=== PATIENT | female | born 1960 | race Caucasian/White ===

== ENCOUNTER 2017-05-11 12:48 | Emergency (ER) | payer OTHER ==
[2017-05-11] MEDS ORDERED: Meclizine TAB* 12.5 MG PO ONE (13:39)
[2017-05-11] MEDS ORDERED: Ondansetron INJ* 2 MG/ML VIAL IV ONE (13:39)
[2017-05-11 14:02] LABS: Hematocrit 36 % (35-47); Mean Corpuscular HGB Conc 33 g/dl (31-36); Mean Corpuscular Hemoglobin 26 pg (27-31); Mean Corpuscular Volume 77 fL (80-97); Mean Platelet Volume 10 um3 (7.4-10.4); Red Blood Count 4.71 10^6/ul (4.0-5.4); Red Cell Distribution Width 15 % (10.5-15); White Blood Count 9.4 10^3/ul (3.5-10.8)
[2017-05-11 14:25] LABS: Troponin I 0.01 ng/mL (<0.04)
[2017-05-11 14:27] LABS: Albumin 4.2 g/dL (3.2-5.2); BUN/Creatinine Ratio 13.6 (8-20); Calcium 9.7 mg/dL (8.6-10.3); EGFR African American 94.1 (>60); EGFR Non-African American 73.1 (>60); Globulin 3.3 g/dL (2-4); Potassium 3.9 mmol/L (3.5-5.0); Total Bilirubin 0.3 mg/dL (0.2-1.0); Total Protein 7.5 g/dL (6.4-8.9)
--- NOTE | 2017-05-11 14:50 | RAD ---
HISTORY: Dizziness COMPARISONS: November 14, 2009 TECHNIQUE: Multiple contiguous axial CT scans were obtained of the head without intravenous contrast. FINDINGS: HEMORRHAGE/INFARCT: There is no hemorrhage or acute infarct. MASSES/SHIFT: There is no mass or shift. EXTRA-AXIAL SPACES: There are no extra-axial fluid collections. SULCI AND VENTRICLES: The sulci and ventricles are normal in size and position for the patient's stated age. CEREBRUM: There are no focal parenchymal abnormalities. BRAINSTEM: There are no focal parenchymal abnormalities. CEREBELLUM: There are no focal parenchymal abnormalities. VESSELS: The vessels are grossly normal. PARANASAL SINUSES: The paranasal sinuses are clear. ORBITS: The orbits are unremarkable. BONES AND SOFT TISSUE: No bone or soft tissue abnormalities are noted. OTHER: None IMPRESSION: NO ACUTE INTRACRANIAL PATHOLOGY.
[2017-05-11 14:57] LABS: Urine Bacteria Absent (Absent); Urine Bilirubin Negative (Negative); Urine Glucose Negative (Negative); Urine Nitrite Negative (Negative)
[2017-05-11 15:16] LABS: TSH (Thyroid Stimulating Horm) 0.53 mcIU/mL (0.34-5.60)
[2017-05-11] MEDS ORDERED: NS 0.9% 1000 ML* 1,000 ML IV ONE (16:09)
[2017-05-11 18:44] VITALS: BP 140/75
--- NOTE | 2017-05-11 21:07 | ED ---
Carlos Brooks Nilda, scribed for Hang Chua MD on 05/11/17 at 1348 . Dizziness - HPI Summary HPI Summary: This patient is a 56 year old F presenting to [facility] accompanied by with a chief complaint of dizziness exacerbated since 1000 (3.5 hours ago). The patient rates the pain 0/10 in severity. Symptoms aggravated by movement. Symptoms alleviated by nothing. Patient reports shakiness inside, unsteadiness , constant nausea, and intermittent dizziness every day for the past two months. Patient denies feelings of syncope and tremors. She is awaiting a neurology appointment. - History Of Current Complaint Chief Complaint: EDDizziness Stated Complaint: DIZZY Time Seen by Provider: 05/11/17 13:28 Hx Obtained From: Patient Onset/Duration: Still Present, Gradually Timing: Constant Severity Currently: Mild Character: Dizzy Aggravating Factor(s): Other - Movement Alleviating Factor(s): Nothing Associated Signs And Symptoms: Positive: Nausea, Unsteady Gait, Other: - "shakiness inside"; denies tremors and syncope - Allergies/Home Medications Allergies/Adverse Reactions: Allergies Allergy/AdvReac Type Severity Reaction Status Date / Time Clarithromycin [From Biaxin] Allergy Intermediate facial Verified 05/11/17 13:02 swelling morphine Allergy Headache Uncoded 05/11/17 13:02 PMH/Surg Hx/FS Hx/Imm Hx Respiratory History: Reports: Hx Asthma History: Reports: Hx Kidney Stones - Cancer History Hx Chemotherapy: No Hx Radiation Therapy: No - Surgical History Surgery Procedure, Year, and Place: Laporoscopy Infectious Disease History: Yes Infectious Disease History: Denies: Traveled Outside the [place] in Last 30 Days - Family History Known Family History: Positive: Hypertension, Diabetes - Social History Alcohol Use: Rare Substance Use Type: Reports: None Smoking Status (MU): Former Smoker Type: Cigarettes Amount Used/How Often: 1/2 PPD- 1PPD Length of Time of Smoking/Using Tobacco: 34 years Have You Smoked in the Last Year: Yes Review of Systems Positive: Nausea Neurological: Other - "shakiness inside," dizziness, unsteadiness; negative: tremors Negative: Syncope All Other Systems Reviewed And Are Negative: Yes Physical Exam Triage Information Reviewed: Yes Vital Signs On Initial Exam: Initial Vitals BP 133/83 05/11/17 12:55 Vital Signs Reviewed: Yes Appearance: Positive: Well-Appearing, No Pain Distress, Obese Skin: Positive: Warm, Skin Color Reflects Adequate Perfusion, Dry Head/Face: Positive: Normal Head/Face Inspection Eyes: Positive: Normal, Other: - No nystagmus ENT: Positive: Normal ENT inspection Neck: Positive: Supple, Nontender Respiratory/Lung Sounds: Positive: Clear to Auscultation, Breath Sounds Present Cardiovascular: Positive: RRR Abdomen Description: Positive: Nontender, Soft Bowel Sounds: Positive: Present Musculoskeletal: Positive: Normal Neurological: Positive: Normal Psychiatric: Positive: Normal, Affect/Mood Appropriate - [place] Coma Scale Coma Scale Total: 15 Diagnostics - Vital Signs Vital Signs Temp Pulse Resp BP Pulse Ox 05/11/17 13:10 116 147/81 05/11/17 13:00 103 19 98 05/11/17 12:58 97.6 F 100 19 133/83 98 05/11/17 12:56 107 98 05/11/17 12:55 133/83 - Laboratory Lab Results: Lab Results 05/11/17 05/11/17 05/11/17 Range/Units 13:50 13:50 13:50 WBC 9.4 (3.5-10.8) 10^3/ul RBC 4.71 (4.0-5.4) 10^6/ul Hgb 12.0 (12.0-16.0) g/dl Hct 36 (35-47) % MCV 77 L (80-97) fL MCH 26 L (27-31) pg MCHC 33 (31-36) g/dl RDW 15 (10.5-15) % Plt Count 292 (150-450) 10^3/ul MPV 10 (7.4-10.4) um3 Neut % (Auto) 58.8 (38-83) % Lymph % (Auto) 30.6 (25-47) % [place] % (Auto) 6.8 (1-9) % Eos % (Auto) 2.9 (0-6) % Baso % (Auto) 0.9 (0-2) % Absolute Neuts (auto) 5.5 (1.5-7.7) 10^3/ul Absolute Lymphs (auto) 2.9 (1.0-4.8) 10^3/ul Absolute Monos (auto) 0.6 (0-0.8) 10^3/ul Absolute Eos (auto) 0.3 (0-0.6) 10^3/ul Absolute Basos (auto) 0.1 (0-0.2) 10^3/ul Absolute Nucleated RBC 0 10^3/ul Nucleated RBC % 0 Sodium 136 (133-145) mmol/L Potassium 3.9 (3.5-5.0) mmol/L Chloride 102 (101-111) mmol/L Carbon Dioxide 26 (22-32) mmol/L Anion Gap 8 (2-11) mmol/L BUN 11 (6-24) mg/dL Creatinine 0.81 (0.51-0.95) mg/dL Est GFR ( Amer) 94.1 (>60) Est GFR (Non-Af Amer) 73.1 (>60) BUN/Creatinine Ratio 13.6 (8-20) Glucose 115 H (70-100) mg/dL Lactic Acid 2.0 (0.5-2.0) mmol/L Calcium 9.7 (8.6-10.3) mg/dL Total Bilirubin 0.30 (0.2-1.0) mg/dL AST 36 (13-39) U/L ALT 52 (7-52) U/L Alkaline Phosphatase 64 (34-104) U/L Troponin I 0.01 (<0.04) ng/mL Total Protein 7.5 (6.4-8.9) g/dL Albumin 4.2 (3.2-5.2) g/dL Globulin 3.3 (2-4) g/dL Albumin/Globulin Ratio 1.3 (1-3) TSH 0.53 (0.34-5.60) mcIU/mL Urine Color Urine Appearance Urine pH (5-9) Ur Specific [place] (1.010-1.030) Urine Protein (Negative) Urine Ketones (Negative) Urine Blood (Negative) Urine Nitrate (Negative) Urine Bilirubin (Negative) Urine Urobilinogen (Negative) Ur Leukocyte Esterase (Negative) Urine WBC (Auto) (Absent) Urine RBC (Auto) (Absent) Ur Squamous Epith Cells (Absent) Urine Bacteria (Absent) Urine Glucose (Negative) 05/11/17 Range/Units 14:30 WBC (3.5-10.8) 10^3/ul RBC (4.0-5.4) 10^6/ul Hgb (12.0-16.0) g/dl Hct (35-47) % MCV (80-97) fL MCH (27-31) pg MCHC (31-36) g/dl RDW (10.5-15) % Plt Count (150-450) 10^3/ul MPV (7.4-10.4) um3 Neut % (Auto) (38-83) % Lymph % (Auto) (25-47) % [place] % (Auto) (1-9) % Eos % (Auto) (0-6) % Baso % (Auto) (0-2) % Absolute Neuts (auto) (1.5-7.7) 10^3/ul Absolute Lymphs (auto) (1.0-4.8) 10^3/ul Absolute Monos (auto) (0-0.8) 10^3/ul Absolute Eos (auto) (0-0.6) 10^3/ul Absolute Basos (auto) (0-0.2) 10^3/ul Absolute Nucleated RBC 10^3/ul Nucleated RBC % Sodium (133-145) mmol/L Potassium (3.5-5.0) mmol/L Chloride (101-111) mmol/L Carbon Dioxide (22-32) mmol/L Anion Gap (2-11) mmol/L BUN (6-24) mg/dL Creatinine (0.51-0.95) mg/dL Est GFR ( Amer) (>60) Est GFR (Non-Af Amer) (>60) BUN/Creatinine Ratio (8-20) Glucose (70-100) mg/dL Lactic Acid (0.5-2.0) mmol/L Calcium (8.6-10.3) mg/dL Total Bilirubin (0.2-1.0) mg/dL AST (13-39) U/L ALT (7-52) U/L Alkaline Phosphatase (34-104) U/L Troponin I (<0.04) ng/mL Total Protein (6.4-8.9) g/dL Albumin (3.2-5.2) g/dL Globulin (2-4) g/dL Albumin/Globulin Ratio (1-3) TSH (0.34-5.60) mcIU/mL Urine Color Yellow Urine Appearance Cloudy Urine pH 5.0 (5-9) Ur Specific [place] 1.014 (1.010-1.030) Urine Protein Negative (Negative) Urine Ketones Negative (Negative) Urine Blood Negative (Negative) Urine Nitrate Negative (Negative) Urine Bilirubin Negative (Negative) Urine Urobilinogen Negative (Negative) Ur Leukocyte Esterase 2+ H (Negative) Urine WBC (Auto) 3+(>20/hpf) H (Absent) Urine RBC (Auto) 1+(3-5/hpf) H (Absent) Ur Squamous Epith Cells Present H (Absent) Urine Bacteria Absent (Absent) Urine Glucose Negative (Negative) Result Diagrams: 05/11/17 13:50 05/11/17 13:50 Lab Statement: Any lab studies that have been ordered have been reviewed, and results considered in the medical decision making process. - CT Brain CT Interpretation Completed By: Radiologist - Brain CT reveals no acute intracranial pathology. ED physician has reviewed this radiology report and agrees. - EKG 1509 Cardiac Rate: Tachycardia - Borderline Tachycardia, 99 bpm EKG Rhythm: Sinus Rhythm EKG Interpretation: non-specific changes Re-Evaluation - Re-Evaluation First Eval Re-Evaluation Time: 16:07 Comment: Patient reports that she feels slightly better. Second Eval Re-Evaluation Time: 18:43 Comment: ED Physician will D/C patient with prescription and ask to follow up with PCP in a week. Patient understands and agrees with plan. Dizzy Course/Dx - Course Course Of Treatment: Ms. Maier presented with a history of daily episode of vertigo for which she has been referd to Dr. Mensah. Today she also feels ' shaky inside'. She was borderline tachycardic while here which did not respond to fluids. Her vertigo did respond to medications and her shakiness responded to the fluid. She felt improved and her W/U was negative aside from an equivocal U/A which I will cover. - Diagnoses Provider Diagnoses: UTI (urinary tract infection), Peripheral vertigo Discharge - Discharge Plan Condition: Stable Disposition: HOME Prescriptions: Ciprofloxacin TAB* [Cipro Tab*] 500 mg PO BID #10 tab Meclizine TAB* [Antivert 12.5 TAB*] 25 mg PO TID PRN #20 tab PRN Reason: Dizziness Patient Education Materials: Urinary Tract Infection in Women (ED) Referrals: Bhavik Hammer MD [Primary Care Provider] - 1 Week Additional Instructions: RETURN TO THE EMERGENCY DEPARTMENT FOR CHANGING OR WORSENING SYMPTOMS. The documentation as recorded by the Carlos devine Nilda accurately reflects the service I personally performed and the decisions made by me, Hang Chua MD.
== END 2017-05-11 19:03 | disposition home or self-care (01) ==
LOC: ED 12:48
DX: N39.0 Urinary tract infection, site not specified (principal)
CPT/HCPCS: 36415; 70450; 80053; 81003; 81015; 83605; 84443; 84484; 85025; 87086; 93005; 96360; 96374; 99284; A9270-GY; J2405

== ENCOUNTER 2019-06-12 02:25 | Emergency (ER) | payer OTHER ==
--- OUTSIDE RECORDS SUMMARY | 2019-06-12 02:42 | XMS REPORT | Continuity of Care Document ---
:1960 External Reference #:[id number] Author Name Maite Suggs O.D. Address [address] [place] [address] Care Team Providers Name Role Phone Bhavik Hammer M.D. - Family Medicine Care Team Information Sales Representative Education Courses Problems Active Problems Provider Date H/O: depression Onset: Anxiety Onset: Familial hypercholesterolemia Onset: Hiatal hernia Onset: Nuclear senile cataract Maite Suggs O.D. Onset: 05/30/2017 Myopia Maite Suggs O.D. Onset: 05/30/2017 Regular astigmatism Maite Suggs O.D. Onset: 05/30/2017 Presbyopia Maite Suggs O.D. Onset: 05/30/2017 Type 2 diabetes mellitus Onset: Social History Type Date Description Comments Sex Unknown ETOH Use Consumed 1-2 beers per week Recreational Drug Use Denies Drug Use Tobacco Use Start: Unknown End: Patient is a former quit 4 years ago Unknown smoker Smoking Status Reviewed: 05/24/19 Patient is a former quit 4 years ago smoker Allergies, Adverse Reactions, Alerts Active Allergies Reaction Severity Comments Date Biaxin 05/29/2017 Morphine 05/29/2017 Medications Active Medications SIG Qnty Indications Ordering Provider Date Saline Eye Drop prn Maite Suggs 05/29/2017 O.DSarah Sertraline HCL take 2 tablets by Unknown 100mg mouth once daily Tablets Pantoprazole Sodium take 1 tablet by Unknown 40mg mouth once daily Tablets Bupropion HCL ER (XL) Unknown 300mg Tablets ER 24HR Calcium 600 Unknown 600mg Tablets Multi Vitamin Daily Unknown Tablets Biotin Unknown 1mg Capsules Metformin HCL Unknown 500mg Tablets Rosuvastatin Calcium Unknown 20mg Tablets Amitriptyline HCL Unknown 25mg Tablets Immunizations Description No Information Available Vital Signs Description No Information Available Results Description No Information Available Procedures Description No Information Available Medical Devices Description No Information Available Encounters Description No Information Available Assessments Date Code Description Provider 05/24/2019 H25.13 Age-related nuclear cataract, bilateral Maite Suggs O.D. 05/24/2019 E11.9 Type 2 diabetes mellitus without Maite Suggs O.D. complications 05/24/2019 H52.13 Myopia, bilateral Maite Suggs O.D. 05/24/2019 H52.4 Presbyopia Maite Suggs O.D. 05/24/2019 H52.223 Regular astigmatism, bilateral Maite Suggs O.D. Plan of Treatment 05/24/2019 - Maite Suggs O.D.H25.13 Age-related nuclear cataract, bilateralComments:You have nuclear sclerosis, which is hardening of your natural lens. This is normal as a person ages.Follow up:1 YEAR You can expect to have your eyes dilated at your next visit. If Dr. Suggs orders any additional testing, it may require extra time. We recommend that you bring sunglasses, as dilation drops often make you light sensitive until they wear off. We always recommend you bring someone to drive you home if you are uncomfortable driving with your eyes dilated. If you have any questions before your next visit, feel free to call our office at .E11.9 Type 2 diabetes mellitus without complicationsComments:You have diabetes. I do not detect any changes in both of your retinas from diabetes at this time. Proper control of your diabetes is important for the health of your eyes. Changes in your eyes from diabetes can happen without symptoms, so it is important that you have your eyes examined.H52.13 Myopia, bilateralComments:You have Myopia, or near sightedness. I have given you a prescription for glasses.H52.4 PresbyopiaComments:You have presbyopia. This is when the lens in your eye loses the ability to change focus, and happens as we age. A pair of reading glasses will help you see up close.H52.223 Regular astigmatism, bilateralComments: Astigmatism is a common vision condition that happens when a person's cornea is not symmetrical. Dr. Suggs has given you a prescription to correct for this. Functional Status Description No Information Available Mental Status Description No Information Available Referrals Description No Information Available
--- OUTSIDE RECORDS SUMMARY | 2019-06-12 02:42 | XMS REPORT | Continuity of Care Document ---
:1960 External Reference #:[id number] Author Name Zac Shankar M.D. 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 Onset: 2017 Social History Type Date Description Comments Sex Unknown ETOH Use Rarely consumes alcohol beverage once every four months Tobacco Use Start: Unknown End: Patient is a former Unknown smoker Recreational Drug Use Denies Drug Use Smoking Status Reviewed: 06/07/19 Patient is a former smoker Exercise Type/Frequency Does not exercise Allergies, Adverse Reactions, Alerts Active Allergies Reaction Severity Comments Date Lipitor 09/30/2017 Biaxin 09/30/2017 Medications Active Medications SIG Qnty Indications Ordering Date Provider Amitriptyline HCL two tabs daily 60tabs G43.009 Zac Royal 09/30/2017 10mg Mckenzie Shankar Tablets Rizatriptan Benzoate 1 by mouth twice 10tabs G43.009 Zac Royal 09/30/2017 10mg a day as needed Mckenzie Shankar Tablets Dispers headache max 2 days a week Ventolin HFA 2 puffs by mouth Unknown 108(90Base) four times a day mcg/Act Aerosol as needed Bupropion HCL ER (SR) once daily Unknown 150mg Tablets ER 12HR Pantoprazole Sodium daily Unknown 40mg Tablets DR Sertraline HCL 1 by mouth daily Unknown 100mg Tablets Biotin Maximum one daily Unknown Strength 5000mcg Capsules Calcium 600+D3 As directed Unknown [id number] Tablets Multi Vitamin Daily 1 by mouth every Unknown day Tablets Rosuvastatin Calcium take 1 tablet by Unknown 20mg mouth once daily Tablets Metformin HCL take one tablet Unknown 1000mg by mouth twice a Tablets day Immunizations Description No Information Available Vital Signs Date Vital Result Comment 06/07/2019 3:54pm Height 60 inches 5'0" Weight 147.31 lb Heart Rate 98 /min BP Systolic 118 mmHg BP Diastolic 74 mmHg BMI (Body Mass Index) 28.8 kg/m2 05/26/2018 3:45pm Height 60 inches 5'0" Weight 160.12 lb Heart Rate 78 /min BP Systolic Sitting 128 mmHg BP Diastolic Sitting 88 mmHg BMI (Body Mass Index) 31.3 kg/m2 Results Description No Information Available Procedures Description No Information Available Medical Devices Description No Information Available Encounters Description No Information Available Assessments Date Code Description Provider 06/07/2019 G43.009 Migraine without aura, not intractable, Zac Shankar M.D. without status migrainosus Plan of Treatment Future Appointment(s):06/06/2020 3:45 pm - Zac Shankar M.D. at [facility]06/07/2019 - Zac Shankar M.D.G43.009 Migraine without aura, not intractable, without status migrainosusFollow up:1 YEAR Functional Status Description No Information Available Mental Status Description No Information Available Referrals Description No Information Available
--- OUTSIDE RECORDS SUMMARY | 2019-06-12 02:42 | XMS REPORT ---
:1960 Author Organization [facility] O[facility] Address [address] [place] [address] Care Team Providers Name Role Phone Leslye Peter Unavailable Unavailable PROBLEMS Type Condition ICD9-CM Code [id number] Onset Condition SNOMED Code Code Dates Status Problem Menopausal and N95.1 Active 533366489 female climacteric states Problem Postmenopausal N95.0 Active 62683700 bleeding Problem Leiomyoma of D25.9 Active 20252253 uterus, unspecified Problem Other specified N92.5 Active 03249516 irregular menstruation ALLERGIES No Information ENCOUNTERS Encounter Location Date Diagnosis [address] May, [facility] [address] [place], [place] [id number] [address] Apr, Encounter for screening [facility] [address] [place], mammogram for malignant [place] [id number] neoplasm of breast Z12.31 [facility] 103 Nov, OBGYN [place] [id number] [facility] 103 May, Other [facility] N92.5 and [place], [place] [id number] Leiomyoma of uterus, unspecified D25.9 [facility] 103 May, Leiomyoma of uterus, OBGYN [facility] unspecified D25.9 and [place], [place] [id number] Postmenopausal bleeding N95.0 [facility] 103 Apr, OBGYN [place] [id number] [facility] 103 Apr, OBGYN [place] [id number] [facility] 103 Mar, OBGYN [place] [id number] [facility] 103 Mar, OBGYN [place] [id number] [place] [facility] [address] [place] [address] [place] Mar, Encounter for gynecological [address] [place], examination (general) [place] [id number] (routine) without abnormal findings Z01.419 ; Menopausal and female climacteric states N95.1 ; Encounter for screening for malignant neoplasm of cervix Z12.4 ; Encounter for screening mammogram for malignant neoplasm of breast Z12.31 and Leiomyoma of uterus, unspecified D25.9 [facility] Feb, OBGYN [place] [id number] [place] [facility] [address] [facility] Sep, Other specified irregular OBGYN [address] [place], menstruation N92.5 ; [place] [id number] Menopausal and female climacteric states N95.1 and Leiomyoma of uterus, unspecified D25.9 [place] [facility] [address] [facility] Jun, Other specified irregular [address]BGYN [address] [place], menstruation N92.5 ; [place] [id number] Menopausal and female climacteric states N95.1 and Leiomyoma of uterus, unspecified D25.9 [facility] Jun, OBGYN [place] [id number] [place] [facility], OBGYN [address] [place] [id number] [facility] [address] May, [place] [id number] [facility] 103 May, [place] [id number] [facility] May, Leiomyoma of uterus, OBGYN [address] [place], unspecified D25.9 ; Other [place] [id number] specified irregular menstruation N92.5 and Urinary tract infection, site not specified N39.0 [facility] 103 Apr, OBGYN [facility] [place] [id number] [place] [facility] [address] [place], [place] [address] Apr, Leiomyoma of uterus, OBGYN [address] [place], unspecified D25.9 and Other [place] [id number] specified irregular menstruation N92.5 [place] [facility] [address] [place], [place] [address] 15 Apr, 2017 Excessive and frequent OBGYN [address] [place], menstruation with regular [place] [id number] cycle N92.0 [facility] 103 Apr, Excessive and frequent OBGYN [facility] menstruation with regular [place], [place] [id number] cycle N92.0 and Leiomyoma of uterus, unspecified D25.9 [facility] 103 Apr, Excessive and frequent OBGYN [facility] menstruation with regular [place], [place] [id number] cycle N92.0 and Leiomyoma of uterus, unspecified D25.9 [place] [facility] [address] [place] [address] Mar, Encounter for gynecological OBGYN [address] [place] [address], examination (general) [place] [id number] (routine) without abnormal findings Z01.419 ; Encounter for screening mammogram for malignant neoplasm of breast Z12.31 ; Excessive and frequent menstruation with regular cycle N92.0 ; Encounter for screening for malignant neoplasm of colon Z12.11 and Leiomyoma of uterus, unspecified D25.9 [place] [facility] [address] [place] [address] Feb, Encounter for gynecological OBGYN [address] [place] [address], examination (general) [place] [id number] (routine) without abnormal findings Z01.419 ; Encounter for screening mammogram for malignant neoplasm of breast Z12.31 ; Excessive and frequent menstruation with regular cycle N92.0 ; Encounter for screening for malignant neoplasm of colon Z12.11 and Leiomyoma of uterus, unspecified D25.9 [facility] 103 Feb, OBGYN [place], [place] [id number] [facility] 103 December, Excessive and frequent OBGYN [facility] menstruation with regular [place], [place] [id number] cycle N92.0 and Leiomyoma of uterus, unspecified D25.9 [facility] 103 Nov, OBGYN [place] [id number] [facility] 103 Nov, OBGYN [place], [place] [id number] [facility] 103 Sep, Excessive and frequent OBGYN [facility] menstruation with regular [place], [place] [id number] cycle N92.0 [facility] 103 December, Encounter for gynecological OBGYN [facility] examination (general) [place], [place] [id number] (routine) without abnormal findings Z01.419 ; Excessive and frequent menstruation with regular cycle N92.0 ; Unspecified ovarian cysts N83.20 ; Leiomyoma of uterus, unspecified D25.9 ; Encounter for screening for malignant neoplasm of colon Z12.11 and Encounter for screening for malignant neoplasm of cervix Z12.4 [facility] 103 December, Other ovarian cysts N83.29 OBGYN [place] [id number] [facility] 103 Aug, Excessive and frequent OBGYN [facility] menstruation with regular [place], [place] [id number] cycle N92.0 ; Unspecified ovarian cysts N83.20 and Leiomyoma of uterus, unspecified D25.9 [facility] 103 Aug, Unspecified ovarian cysts OBGYN [facility] N83.20 and Leiomyoma of [place] [id number] uterus, unspecified D25.9 [facility] 103 May, Excessive and frequent OBGYN [facility] menstruation with regular [place], [place] [id number] cycle N92.0 ; Unspecified ovarian cysts N83.20 and Leiomyoma of uterus, unspecified D25.9 [facility] 103 May, Leiomyoma of uterus, [facility] unspecified D25.9 and [place], [place] [id number] Unspecified ovarian cysts N83.[address] Feb, Menometrorrhagia 626.[address] [facility] [address] [place] [id number] Feb, HEMATURIA NOS [address] [place], Menometrorrhagia 626.2 [place] [id number] [facility] 103 Feb, Menometrorrhagia 626.2 [place] [id number] [facility] 103 Feb, Menometrorrhagia 626.2 and [facility] Leiomyoma of uterus, [place], [place] [id number] unspecified 218.9 [facility] 103 Jan, [place] [id number] [address] Jan, HEMATURIA NOS 599.70 and [facility] [address], Menometrorrhagia 626.2 [place] [id number] IMMUNIZATIONS No Known Immunizations SOCIAL HISTORY Never Assessed REASON FOR REFERRAL FUNCTIONAL STATUS PLAN OF CARE Activity Details Pending Test Mammogram, Routine Screening - bilateral VITAL SIGNS MEDICATIONS Unknown Medications PROCEDURES No Known procedures RESULTS No Results REASON FOR VISIT mammo order Insurance Providers [facility] Health Member Patient Patient Patient Patient Patient Subscriber Subscriber Subscriber Group Insurance Plan Plan Plan Plan ID Relationship Address Phone Name Date of ID Name Date of No Type Insurance Insurance Insurance Coverage to Subscriber Address Phone Name Dates [employer] [phone] [employer] self Blanca [id number] [facility] [phone] 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
[2019-06-12 03:13] LABS: ABS Basophils 0.1 10^3/ul (0-0.2); ABS Eosinophils 0.7 10^3/ul (0-0.6); ABS Lymphocytes 4.2 10^3/ul (1.0-4.8); ABS Monocytes 0.9 10^3/ul (0-0.8); Eosinophil % 5.1 %; Hematocrit 37 % (35-47); Hemoglobin 11.9 g/dL (12.0-16.0); Mean Corpuscular HGB Conc 32 g/dL (31-36); Mean Corpuscular Hemoglobin 24 pg (27-31); Mean Corpuscular Volume 76 fL (80-97); Mean Platelet Volume 9.3 fL (7.4-10.4); Nucleated Red Blood Cells % 0.2; Platelet Count 345 10^3/uL (150-450); Red Blood Count 4.87 10^6 /uL (3.70-4.87); Red Cell Distribution Width 16 % (10-15)
[2019-06-12 03:27] LABS: Albumin 4.3 g/dL (3.2-5.2); Albumin/Globulin Ratio 1.4 (1-3); BUN/Creatinine Ratio 18.4 (8-20); Calcium 10.2 mg/dL (8.6-10.3); EGFR African American 70.5 (>60); EGFR Non-African American 58.3 (>60); Globulin 3.1 g/dL (2-4); Potassium 4.3 mmol/L (3.5-5.0); Total Bilirubin 0.2 mg/dL (0.2-1.0); Total Protein 7.4 g/dL (6.4-8.9)
--- NOTE | 2019-06-12 03:27 | ED ---
GI/ HPI - HPI Summary HPI Summary: Patient is a 58 y/o F w/ Hx of right-sided kidney stones who presents to [facility] with complaints of right flank pain. She states "I can't get comfortable". Sx onset around 2100/2200 06/11/19. Pain has been constant. Nausea is endorsed. Last kidney stone was around 1 year ago. Patient reports that she has been able to pass all of her kidney stones. No fever, no chills, no vomiting, no diarrhea , no constipation, no hematuria, no dysuria, no vaginal bleeding/discharge is reported. PMHx of migraines is reported. Patient still has appendix and gallbladder. She is a former smoker and reports rare alcohol usage, no substance usage. Patient took 800 mg ibuprofen around 2300 06/11/19. She states that morphine "doesn't agree" with her. Home medications and allergies are reviewed. is present in the room. - History of Current Complaint Chief Complaint: EDFlankPain Time Seen by Provider: 06/12/19 03:21 Stated Complaint: POS KIDNEY STONE PER PT Hx Obtained From: Patient Hx Last Menstrual Period: December - pt is pre-menopausal Onset/Duration: Started Hours Ago, Still Present Timing: Constant, Lasting Hours Current Severity: Severe Pain Intensity: 8 Location of Pain: Flank - right Associated Signs and Symptoms: Positive: Nausea, Flank Pain - right, Other: - No fever, no chills, no vomiting, no diarrhea, no constipation, no hematuria, no dysuria, no vaginal bleeding/discharge. Negative: Vomiting, Constipation, Diarrhea, Fever, Hematuria, Dysuria, Chills Additional Signs & Symptoms: Negative: Vaginal Bleeding, Vaginal Discharge - Allergy/Home Medications Allergies/Adverse Reactions: Allergies Allergy/AdvReac Type Severity Reaction Status Date / Time MS Clarithromycin Allergy Intermediate facial Verified 06/12/19 02:35 [From Biaxin] swelling morphine Allergy Headache Uncoded 05/11/17 13:02 PMH/Surg Hx/FS Hx/Imm Hx Respiratory History: Reports: Hx Asthma History: Reports: Hx Kidney Stones - Cancer History Hx Chemotherapy: No Hx Radiation Therapy: No - Surgical History Surgery Procedure, Year, and Place: Laporoscopy - Immunization History Date of Tetanus Vaccine: unk Date of Influenza Vaccine: fall 2017 Infectious Disease History: No Infectious Disease History: Denies: Traveled Outside the [place] in Last 30 Days - Family History Known Family History: Positive: Hypertension, Diabetes - Social History Alcohol Use: Rare Substance Use Type: Reports: None Smoking Status (MU): Former Smoker Type: Cigarettes Amount Used/How Often: 1/2 PPD- 1PPD Length of Time of Smoking/Using Tobacco: 34 years Have You Smoked in the Last Year: Yes Review of Systems Negative: Fever, Chills Gastrointestinal: Other - negative - constipation Positive: Nausea. Negative: Vomiting, Diarrhea Genitourinary: Other - negative - vaginal bleeding Positive: flank pain - right . Negative: dysuria, discharge - vaginal , hematuria All Other Systems Reviewed And Are Negative: Yes Physical Exam - Summary Physical Exam Summary: Constitutional: Well-developed, Well-nourished, Alert. Mild distress secondary to pain Skin: Warm, Dry HENT: Normocephalic; Atraumatic Eyes: Conjunctiva normal Neck: Musculoskeletal ROM normal neck. (-) JVD, (-) Stridor, (-) Tracheal deviation Cardio: Rhythm regular, rate normal, Heart sounds normal; Intact distal pulses; Radial pulses are 2+ and symmetric. (-) Murmur Pulmonary/Chest wall: Effort normal. (-) Respiratory distress, (-) Wheezes, (-) Rales Abd: Soft, (+) Mild RLQ tenderness, (-) Distension, (-) Guarding, (-) Rebound Musculoskeletal: (-) Edema Lymph: (-) Cervical adenopathy Neuro: Alert, Oriented x3 Psych: Mood and affect Normal Triage Information Reviewed: Yes Vital Signs On Initial Exam: Initial Vitals Temp Pulse Resp BP Pulse Ox 97.7 F 105 20 135/96 98 06/12/19 02:36 06/12/19 02:36 06/12/19 02:36 06/12/19 02:36 06/12/19 02:36 Vital Signs Reviewed: Yes Procedures - Sedation Patient Received Moderate/Deep Sedation with Procedure: No Diagnostics - Vital Signs Vital Signs Temp Pulse Resp BP Pulse Ox 06/12/19 02:36 97.7 F 105 20 135/96 98 - Laboratory Lab Results: Lab Results 06/12/19 Range/Units 03:04 WBC 14.0 H (3.5-10.8) 10^3/uL RBC 4.87 (3.70-4.87) 10^6 /uL Hgb 11.9 L (12.0-16.0) g/dL Hct 37 (35-47) % MCV 76 L (80-97) fL MCH 24 L (27-31) pg MCHC 32 (31-36) g/dL RDW 16 H (10-15) % Plt Count 345 (150-450) 10^3/uL MPV 9.3 (7.4-10.4) fL Neut % (Auto) 57.4 % Lymph % (Auto) 30.0 % [place] % (Auto) 6.7 % Eos % (Auto) 5.1 % Baso % (Auto) 0.8 % Absolute Neuts (auto) 8.0 H (1.5-7.7) 10^3/ul Absolute Lymphs (auto) 4.2 (1.0-4.8) 10^3/ul Absolute Monos (auto) 0.9 H (0-0.8) 10^3/ul Absolute Eos (auto) 0.7 H (0-0.6) 10^3/ul Absolute Basos (auto) 0.1 (0-0.2) 10^3/ul Absolute Nucleated RBC 0.0 10^3/ul Nucleated RBC % 0.2 Result Diagrams: 06/12/19 03:04 06/12/19 03:04 Lab Statement: Any lab studies that have been ordered have been reviewed, and results considered in the medical decision making process. - CT CT ABD/PEL CT Interpretation Completed By: Radiologist Summary of CT Findings: IMPRESSION: 1. 2 mm mid right ureteral calculus at approximately L4-L5 with secondary. obstructive uropathy of the right upper tract. 2. Small nonobstructing right renal calculi in the lower pole. 3. Minimal hiatal hernia. THIS REPORT WAS REVIEWED BY DR. BELTRAN. Re-Evaluation - Re-Evaluation First Eval Re-Evaluation Time: 05:04 Comment: Results of CT were discussed, patient is discharged to home and will follow up with urology. GIGU Course/Dx - Course Course Of Treatment: Patient is here with a kidney stone. Patient looks uncomfortable on arrival and was given IV Dilaudid with improvement in her symptoms. Patient had a CT scan showed a 2 mm stone. Patient has no evidence of pyelonephritis on physical exam, history. Patient starting Flomax, Gran[place], Zofran, and given urology follow-up. - Diagnoses Provider Diagnoses: Right kidney stone Discharge ED - Sign-Out/Discharge Documenting (check all that apply): Patient Departure - discharge - Discharge Plan Condition: Stable Disposition: HOME Prescriptions: HYDROcodone/ACETAMIN 5-325 MG* [[place] 5-325 TAB*] 1 tab PO Q6H PRN #20 tab MDD 4 tablets PRN Reason: Pain - Severe Ondansetron ODT TAB* [Zofran 4 MG Odt TAB*] 4 mg PO Q8H PRN #12 tab.odt PRN Reason: Vomiting Tamsulosin CAP* [Flomax CAP*] 0.4 mg PO DAILY 30 Days #30 cap Patient Education Materials: Kidney Stones (ED) Referrals: Bhavik Hammer MD [Primary Care Provider] - 3 Days Latrell Villarreal MD [Medical Doctor] - 3 Days Additional Instructions: Please return to ED for fever, worsening abdominal pain or vomiting that is not controlled by your medications. Take ibuprofen 600 mg every six hours as needed for pain. Urinate through a urine strainer. Follow up with urologist and PCP within 1-3 days unless I have advised you otherwise. - Billing Disposition and Condition Condition: STABLE Disposition: Home - Attestation Statements Document Initiated by Tayo: Yes Documenting Scribe: VALENCIA MITCHELL Provider For Whom Tayo is Documenting (Include Credential): MEMO BELTRAN MD Scribe Attestation: VALENCIA Brooks, scribed for MEMO BELTRAN MD on 06/12/19 at 0534. Scribe Documentation Reviewed: Yes Provider Attestation: The documentation as recorded by the VALENCIA devine accurately reflects the service I personally performed and the decisions made by , MEMO BELTRAN MD Status of Scribsarah Document: Viewed
[2019-06-12] MEDS ORDERED: NS 0.9% 1000 ML** 1,000 ML IV ONE (03:30)
[2019-06-12] MEDS ORDERED: HYDROmorphone INJ* 0.5 MG/0.5 ML SYRINGE IV ONE (03:30)
[2019-06-12] MEDS ORDERED: Ondansetron INJ* 2 MG/ML VIAL IV ONE (03:30)
[2019-06-12 04:05] LABS: Urine Appearance Clear; Urine Bacteria Absent (Absent); Urine Bilirubin Negative (Negative); Urine Blood 3+ (Negative); Urine Color Yellow; Urine Glucose Negative (Negative); Urine Ketones Trace (Negative); Urine Nitrite Negative (Negative); Urine Protein 1+(30 mg/dL) (Negative); Urine Red Blood Cell 3+(>10/hpf) (Absent); Urine Specific Gravity 1.025 (1.010-1.030); Urine Squamous Epithelial Cell Present (Absent); Urine Urobilinogen Negative (Negative); Urine White Blood Cell 3+(>20/hpf) (Absent)
[2019-06-12 05:22] VITALS: BP 101/77
== END 2019-06-12 05:15 | disposition home or self-care (01) ==
LOC: ED 02:25
DX: N20.0 Calculus of kidney (principal); K44.9 Diaphragmatic hernia without obstruction or gangrene; J45.909 Unspecified asthma, uncomplicated; Z87.891 Personal history of nicotine dependence; Z88.1 Allergy status to other antibiotic agents; Z88.5 Allergy status to narcotic agent
CPT/HCPCS: 36415; 74176; 80053; 81003; 81015; 85025; 87086; 96361; 96374; 96375; 99283; J1170; J2405